=== PATIENT | male | born 1975 | race Caucasian/White ===

== ENCOUNTER 2023-11-01 06:02 | Emergency (ER) | payer OTHER ==
[2023-11-01] MEDS ORDERED: iohexoL 350 mgI/mL, 100 ML INFUS..BTL IV ONE (06:43)
[2023-11-01] MEDS ORDERED: ASPIRIN 81 MG TAB.CHEW ONE (07:47)
[2023-11-01] MEDS: NS 1000 ML IV.SOLN IV ONE (08:30)
[2023-11-01 08:31] LABS: BLOOD GAS BASE EXCESS -1.3 mmol/L (-3.0-3.0); BLOOD GAS HCO3 22.5 mmol/L (21.0-27.0); BLOOD GAS PCO2 35.3 mmHg (32.0-45.0); BLOOD GAS PH 7.423 (7.350-7.450); BLOOD GAS PO2 78.6 mmHg (75.0-100.0)
[2023-11-01 08:38] LABS: ALLEN'S TEST POSITIVE (P)
[2023-11-01 09:12] LABS: BARBITURATE, URINE NEGATIVE (NEG <=200); BENZODIAZEPINE, URINE NEGATIVE (NEG <=150); CANNABINOID, URINE NEGATIVE (NEG <=50); COCAINE, URINE NEGATIVE (NEG <=150); METHAMPHETAMINES SCREEN,URINE NEGATIVE (NEG <=500); OPIATE, URINE NEGATIVE (NEG <=100); PHENCYCLIDINE SCREEN,URINE NEGATIVE (NEG <=25); UR TRICYCLIC ANTIDEPRESSANTS NEGATIVE (NEG <=300); URINE AMPHETAMINE NEGATIVE (NEG <=500); URINE METHADONE NEGATIVE (NEG <=200); URINE OXYCODONE SCREEN NEGATIVE (NEG <=100)
[2023-11-01 09:15] LABS: ANION GAP 10 (5-15); CARBON DIOXIDE 25 mmol/L (23-29); CHLORIDE 101 mmol/L (98-107); POTASSIUM 3.8 mmol/L (3.5-5.1); SODIUM SERUM 136 mmol/L (136-145)
[2023-11-01 09:16] LABS: CALCIUM 7.7 mg/dL (8.4-11.0); CREATININE 1.24 mg/dL (0.55-1.30); GFR AFRICAN AMERICAN 80 mL/min (>90); GFR NON AFRICAN-AMERICAN 80 mL/min (>90); GLUCOSE 463 mg/dL (74-106); PROTHROMBIN TIME 10.4 SECS (9.5-12.5); TOTAL BILIRUBIN 0.3 mg/dL (0.0-1.0); UREA NITROGEN, BLOOD 11 mg/dL (8-21)
[2023-11-01 09:17] LABS: ACETAMINOPHEN < 1 ug/mL (1-30); ALANINE AMINOTRANSFERASE 36 U/L (12-78); ALCOHOL, BLOOD < 3 mg/dL (<10); ASPARTATE AMINOTRANSFERASE 29 U/L (10-37); CREATINE KINASE, TOTAL 87 U/L (39-308); SALICYLATE 4 mg/dL (3-30); TOTAL PROTEIN, SERUM 6.3 g/dL (6.4-8.3)
[2023-11-01 09:34] LABS: BASOPHILS # (AUTO) 0.1 K/uL (0.0-0.2); BASOPHILS % (AUTO) 0.6 % (0.0-2.0); EOSINOPHILS # (AUTO) 0.2 K/uL (0.0-0.4); EOSINOPHILS % (AUTO) 2.2 % (0.0-4.0); HEMATOCRIT 42.9 % (36-54); HEMOGLOBIN 14.8 g/dL (14.0-18.0); LYMPHOCYTES # (AUTO) 0.7 K/uL (1.0-5.5); LYMPHOCYTES % (AUTO) 7.9 % (20.5-51.5); MEAN CORPUSCULAR HEMOGLOBIN 35 pg (27-31); MEAN CORPUSCULAR HGB CONC 35 % (32-36); MEAN CORPUSCULAR VOLUME 100 fL (79.0-98.0); MONOCYTES # (AUTO) 0.5 K/uL (0.0-1.0); MONOCYTES % (AUTO) 5.3 % (1.7-9.3); NEUTROPHILS # (AUTO) 7.5 K/uL (1.8-7.7); PLATELET COUNT (AUTO) 230 K/uL (130-430); RED BLOOD CELL COUNT(AUTO) 4.29 MIL/uL (4.2-6.2); RED CELL DISTRIBUTION WIDTH 13.7 % (9.0-15.0); WHITE BLOOD COUNT (AUTO) 8.9 K/uL (4.8-10.8)
[2023-11-01 09:57] LABS: BILIRUBIN,URINE NEGATIVE (NEGATIVE); BLOOD, URINE NEGATIVE (NEGATIVE); CLARITY/URINE CLEAR (CLEAR); COLOR,URINE OTHER (YELLOW); GLUCOSE,URINE 3+ (NEGATIVE); KETONES,URINE NEGATIVE (NEGATIVE); LEUKOCYTE ESTERASE ,URINE NEGATIVE (NEGATIVE); NITRITE, URINE NEGATIVE (NEGATIVE); PH,URINE 6.5 (5.0-8.0); PROTEIN URINE NEGATIVE (NEGATIVE); UROBILINOGEN,URINE 0.2 (0.2-1.0)
[2023-11-01 10:03] LABS: BACTERIA,URINE None Seen /HPF (None Seen); RBC,URINE NONE SEEN /HPF (0-3); WBC,URINE 0-3 /HPF (0-3)
[2023-11-01 11:22] VITALS: BP_SYST 159; PULSE 69; RESP 24; TEMP 97.9; O2SAT 98
== END 2023-11-01 11:22 | disposition short-term general hospital (02) ==
LOC: SED 06:02
DX: G45.9 Transient cerebral ischemic attack, unspecified (principal); E11.65 Type 2 diabetes mellitus with hyperglycemia; R47.81 Slurred speech; F17.210 Nicotine dependence, cigarettes, uncomplicated; F10.10 Alcohol abuse, uncomplicated; Y90.0 Blood alcohol level of less than 20 mg/100 ml
CPT/HCPCS: 99291; 70496; 96360; 71045; 96361; 80307; 80053; 81000; 81001; 82140; 82550; 85025; 85610; 85730; 87040; 87086; 36415; 93005; 70498; 82803; 82948; 83605; 70450; 81015; G0482; Q9967; J7030; G0480; G0481